=== PATIENT | male | born 1965 | race Asian ===

== ENCOUNTER 2022-02-13 11:05 | Emergency (ER) | payer BC, SELFPAY ==
--- NOTE | ~2022-02-13 | XR_ITS ---
XR finger 3rd LT min 2V DATE: 02/13/2022 12:11 INDICATION: Laceration TECHNIQUE: 3 views COMPARISON: None FINDINGS: No radiopaque soft tissue foreign body is evident. As a laceration along the anterior aspec t of the mid to distal digit, anterior to the midportion of the middle phalanx. No fracture, dislocation, periosteal reaction or bone destruction. Impression: Soft tissue laceration No fracture, dislocation, radiopaque foreign body, periosteal reaction or bone destruction Reviewed, dictated and finalized at location A. Impression: Soft tissue laceration No fracture, dislocation, radiopaque foreign body, periosteal reaction or bone destruction
[2022-02-13 11:14] VITALS: BP 153/80; PULSE 81; RESP 18; TEMP 36.2; O2SAT 100
--- NOTE | 2022-02-13 12:01 | ED.WOUNDLAC ---
HPI - Wound/Laceration General Chief Complaint: Wound/Laceration <MARCELLO Guillaume Last Filed: 02/13/22 17:58> Stated Complaint: finger laceration <MARCELLO Guillaume Last Filed: 02/13/22 17:58> Time Seen by Provider: 02/13/22 11:40 <MARCELLO Guillaume Last Filed: 02/13/22 17:58> History of Present Illness HPI narrative: 56-year-old [id number] male here for evaluation of laceration sustained to his left third finger 1 hour prior to arrival. Patient states he was using quarter trimmer in the yard when he slipped and accidentally cut his finger. Patient washed the area out with soap and water. Bleeding controlled prior to arrival. Unsure last tetanus. No numbness, tingling, paresthesias. Patient is able to move the hand with mild pain. <MARCELLO Guillaume Last Filed: 02/13/22 17:58> Related Data Allergies/Adverse Reactions: Allergies Allergy/AdvReac Type Severity Reaction Status Date / Time niacin AdvReac Headache Verified 02/13/22 11:23 <MARCELLO Guillaume Last Filed: 02/13/22 17:58> Review of Systems Review of Systems: Gen.: Denies fevers or chills Eyes: Denies eye pain or visual change ENT: Denies congestion Respiratory: Denies shortness of breath or cough CV: Denies chest pain or palpitations GI: Denies abdominal pain nausea, emesis or diarrhea denies burning, urgency, frequency or hematuria Musculoskeletal: Denies back pain or muscle pain Neuro: Denies numbness, tingling, weakness or focal weakness Skin: Reports laceration Except as documented, all other systems reviewed and negative <MARCELLO Guillaume Last Filed: 02/13/22 17:58> Exam Narrative: Gen: Alert, oriented, speaking full sentences Eyes: EOMI, no icterus Pulm: Respirations even and unlabored, symmetric thorax expansion, no audible stridor or visible cyanosis CV: Regular rate GI: No distension, no voluntary/involuntary guarding Neuro: AOx4, moves all extremities without apparent difficulty or weakness, follows commands MSK: Neurovascular intact distal to the laceration. Full active range of motion of all digits on left hand. Skin: Patient has a 1 cm, irregular laceration to the palmar aspect of his left third digit just proximal to the DIP. Psych: Normal mood/affect, insight/judgement good, adequate fund of knowledge, recent/remote memory intact <Bushra Hendrix PA-C - Last Filed: 02/13/22 17:58> Course CLOTHING MAN/PA Physician Supervision For this patient encounter, I reviewed the CLOTHING MAN or PA documentation, treatment plan, and medical decision making <Nolan Plunkett MD - Last Filed: 02/13/22 21:40> Vital Signs Vital signs: Vital Signs Temperature 97.1 F L 02/13/22 11:14 Pulse Rate 81 02/13/22 11:14 Respiratory Rate 18 02/13/22 11:14 Blood Pressure 153/80 H 02/13/22 11:14 Pulse Oximetry 100 02/13/22 11:14 Oxygen Delivery Room Air 02/13/22 11:14 Temperature 97.1 F L 02/13/22 11:14 Pulse Rate 81 02/13/22 11:14 Respiratory Rate 18 02/13/22 11:14 Blood Pressure 153/80 H 02/13/22 11:14 Pulse Oximetry 100 02/13/22 11:14 Oxygen Delivery Room Air 02/13/22 11:14 <Bushra Hendrix PA-C - Last Filed: 02/13/22 17:58> Vital Signs Temperature 97.1 F L 02/13/22 11:14 Pulse Rate 81 02/13/22 11:14 Respiratory Rate 18 02/13/22 11:14 Blood Pressure 153/80 H 02/13/22 11:14 Pulse Oximetry 100 02/13/22 11:14 Oxygen Delivery Room Air 02/13/22 11:14 Temperature 97.1 F L 02/13/22 11:14 Pulse Rate 81 02/13/22 11:14 Respiratory Rate 18 02/13/22 11:14 Blood Pressure 153/80 H 02/13/22 11:14 Pulse Oximetry 100 02/13/22 11:14 Oxygen Delivery Room Air 02/13/22 11:14 <Nolan Plunkett MD - Last Filed: 02/13/22 21:40> Procedures Laceration Laceration 1: Date: 02/13/22 <Bushra Hendrix PA-C - Last Filed: 02/13/22 17:58> Time:
[2022-02-13] MEDS: TETANUS,DIPHTHERIA,AC PERTUSSIS ADULT (0.5 ML) BOOSTRIX IM (12:17)
== END 2022-02-13 13:18 | disposition home or self-care (01) ==
PROVIDERS: Emergency Provider Emergency Medicine
DX: S61.213A Laceration without foreign body of left middle finger without damage to nail, initial encounter (principal); Z23 Encounter for immunization; W29.3XXA Contact with powered garden and outdoor hand tools and machinery, initial encounter; Y93.H2 Activity, gardening and landscaping
CPT/HCPCS: 12001; 73140; 90471; 90715; 99283